=== PATIENT | female | born 2000 | race Caucasian/White ===

== ENCOUNTER 2023-02-15 19:44 | Emergency (ER) | payer SELFPAY ==
[2023-02-15 19:47] VITALS: BP 138/65; PULSE 78; RESP 16; TEMP 36.7; O2SAT 100; BMI 19.4
--- NOTE | 2023-02-15 19:56 | ED.DENTAL1 ---
HPI - Dental/Oral General Chief complaint: Dental/Oral Stated complaint: TOOTH PAIN Time Seen by Provider: 02/15/23 19:46 Source: patient Mode of arrival: walk-in Limitations: no limitations History of Present Illness HPI Narrative: 22-year-old female presents for toothache. She is complaining pain in the right upper dentition posteriorly. She states a piece of the tooth broke off two days ago. She had called dentist but couldn't get in right away and was put on waiting lists. No fever or difficulty breathing or swallowing. Related Data Previous Rx's Medication Instructions Recorded acetaminophen 300 mg-codeine 30 mg 1 tab PO Q6H PRN pain #20 tabs 02/15/23 tablet ibuprofen 800 mg tablet 800 mg PO Q8H PRN pain #20 tabs 02/15/23 penicillin V potassium 250 mg 250 mg PO QID 10 days #40 tabs 02/15/23 tablet Allergies Allergy/AdvReac Type Severity Reaction Status Date / Time No Known Drug Allergies Allergy Verified 02/15/23 19:52 Review of Systems ROS Narrative A ten point review of systems is negative except as noted above. PFSH PFSH Social History Smoking status: Current every day smoker Exam Narrative Exam Narrative: Nurses note and vital signs reviewed and patient is not hypoxic. General: The patient appears well and in no apparent distress. Patient is resting comfortably on cart. Skin: Warm, dry, no pallor noted. There is no rash noted. Head: Normocephalic, atraumatic Eye: Normal conjunctiva, no drainage Ears, Nose, Mouth, and Throat: oral mucosa is moist. Nares patent. dental caries noted in the right upper dentition posteriorly. No bleeding or pus present. No gingival swelling. No facial swelling or erythema. No swelling to the floor of her mouth and she is handling her oral secretions well. Cardiovascular: Regular Rate and Rhythm Respiratory: Patient is in no distress, no accessory muscle use, GI: nontender Musculoskeletal: The patient has no evidence of calf tenderness, no pitting edema, symmetrical pulses noted bilaterally Neurological: A&O, normal speech Psychiatric: Cooperative Constitutional Vital Signs, click to edit/add: Last Vital Signs Temp 98.1 F 02/15/23 19:47 Pulse 78 02/15/23 19:47 Resp 16 02/15/23 19:47 BP 138/65 02/15/23 19:47 Pulse Ox 100 10/14/23 19:47 O2 Del Method Room Air 02/15/23 19:47 Course Vital Signs Vital signs: Vital Signs Temperature 98.1 F 02/15/23 19:47 Pulse Rate 78 02/15/23 19:47 Respiratory Rate 16 02/15/23 19:47 Blood Pressure 138/65 02/15/23 19:47 Pulse Oximetry 100 02/15/23 19:47 Oxygen Delivery Method Room Air 02/15/23 19:47 Temperature 98.1 F 02/15/23 19:47 Pulse Rate 78 02/15/23 19:47 Respiratory Rate 16 02/15/23 19:47 Blood Pressure 138/65 02/15/23 19:47 Pulse Oximetry 100 02/15/23 19:47 Oxygen Delivery Method Room Air 02/15/23 19:47 MDM - Dental/Oral MDM Narrative Medical decision making narrative: she is provided pain medication and antibiotic and was given dental referral list. Treatment diagnosis and follow-up were discussed with the patient. Differential Diagnosis Differential diagnosis: Likely gingival abscess, dental caries, toothache, dental abscess and fracture of tooth Discharge Plan Discharge Chief Complaint: Dental/Oral Clinical Impression: Dental caries, Toothache, Fracture of tooth Patient Disposition: Home, Self-Care Time of Disposition Decision: 19:54 Condition: Good Mode of Transportation: Private Vehicle Prescriptions / Home Meds: New penicillin V potassium 250 mg tablet 250 mg PO QID 10 Days Qty: 40 0RF ibuprofen 800 mg tablet 800 mg PO Q8H PRN (Reason: pain) Qty: 20 0RF acetaminophen-codeine 300-30 mg tablet 1 tab PO Q6H PRN (Reason: pain) Qty: 20 0RF Instructions: Toothache (ED), Tooth Extraction (DC) Stand Alone Forms: Portal Instructions Referrals: Physician,Non-Staff, MD [Primary Care Provider] - 1 week
== END 2023-02-15 20:16 | disposition home or self-care (01) ==
PROVIDERS: Emergency Provider Emergency Medicine
DX: K02.9 Dental caries, unspecified (principal); S02.5XXA Fracture of tooth (traumatic), initial encounter for closed fracture; X58.XXXA Exposure to other specified factors, initial encounter; K08.89 Other specified disorders of teeth and supporting structures; F17.210 Nicotine dependence, cigarettes, uncomplicated
CPT/HCPCS: 99283